=== PATIENT | male | born 1980 | race Caucasian/White ===

== ENCOUNTER 2017-07-22 16:23 | Inpatient (IN) | payer OTHER ==
[~2017-07-22] VITALS: Ht 180.3 cm; Wt 85.3 kg
[2017-07-22 16:35] VITALS: BP 146/90
[2017-07-22 17:07] LABS: BASO % 0.3 % (0.0-1.0); EOS # 0.1 10*3/uL (0.0-0.4); EOS % 1.3 % (1.0-4.0); HEMATOCRIT 42.3 % (42.0-52.0); HEMOGLOBIN 14.1 g/dl (14.0-18.0); LYMPH # 1.7 10*3/uL (1.3-4.4); LYMPH % 27.6 % (27.0-41.0); MEAN CELL VOLUME 86.5 fl (80.0-94.0); MEAN CORPUSCULAR HGB 28.8 pg (27.0-31.0); MEAN CORPUSCULAR HGB CONC 33.3 g/dl (33.0-37.0); MEAN PLATELET VOLUME 9.3 fl (9.6-12.3); MONO # 0.5 10*3/uL (0.1-1.0); MONO % 8.3 % (3.0-9.0); NEUT # 3.9 10*3/uL (2.3-7.9); NEUT % 62.3 % (47.0-73.0); PLATELET COUNT AUTOMATED 227 10*3/uL (130-400); RED BLOOD COUNT 4.89 10*6/uL (4.50-5.90); RED CELL DISTRI WIDTH 14.6 % (0-14.5); WHITE BLOOD COUNT 6.2 10*3/uL (4.8-10.8)
[2017-07-22 17:09] LABS: BILIRUBIN NEGATIVE (NEGATIVE); BLOOD NEGATIVE (NEGATIVE); CLARITY SL CLOUDY (CLEAR); COLOR YELLOW (YELLOW); GLUCOSE NEGATIVE (NEGATIVE); KETONE NEGATIVE (NEGATIVE); LEUKO ESTERASE NEGATIVE (NEGATIVE); NITRITE NEGATIVE (NEGATIVE); PH 5.5 (5.0-9.0); SPECIFIC GRAVITY 1.025 (1.005-1.030); UROBILINOGEN 0.2 E.U./dl (0.2-1.0)
[2017-07-22 17:18] LABS: URINE AMPHETAMINES < 1000 (1000ng/ml); URINE BARBITURATES < 200 (200ng/ml); URINE BENZODIAZEPINES < 200 (200ng/ml); URINE CANNABINOIDS (THC) < 50 (50ng/ml); URINE COCAINE < 300 (300ng/ml); URINE METHADONE > 300 (300ng/ml); URINE OPIATES > 300 (300ng/ml)
[2017-07-22 17:20] LABS: BACTERIA TRACE; EPITHELIAL CELLS 0-2
[2017-07-22 17:21] LABS: ALKALINE PHOSPHATASE 173 U/L (45-117); BUN 18 mg/dl (7-24); CHLORIDE 104 mmol/L (98-107); CREATININE 0.79 mg/dL (0.70-1.30); POTASSIUM 4.1 mmol/L (3.5-5.1); SGOT/AST 75 IU/L (3-35); SGPT/ALT 250 U/L (12-78); SODIUM 139 mmol/L (136-145); TOTAL PROTEIN 7.8 gm/dL (6.4-8.2)
[2017-07-22 17:21] LABS: URINE PHENCYCLIDINE < 25 (25ng/ml)
[2017-07-22 17:22] LABS: ETHYL ALCOHOL < 3.0 mg/dl (<3)
--- NOTE | 2017-07-22 17:37 | NUR ---
PT LAYING IN BED FAMILY IN ROOM NO DISTRESS NOTED
[2017-07-22 17:47] VITALS: BP 136/80
[2017-07-22 18:16] VITALS: BP 133/71
[2017-07-22] MEDS ORDERED: SEROQUEL XR300 MG PO (18:18)
[2017-07-22] MEDS ORDERED: NAPROXEN500 MG PO (18:21)
--- NOTE | 2017-07-22 18:28 | NUR ---
A 36, admitted to , under the services of VERONICA Sorenson DO with a diagnosis of OPIATE ADDICTION. Chief complaint is SUBSTANCE ABUSE WITHDRAWL. Patient arrived via bed from ER. Monitor applied. Initial assessment completed. Vital signs taken and recorded. VERONICA SORENSON DO notified of admission to the unit. Orders received. See assessment for past medical history, medications and allergies. Patient and/or family oriented to unit. [facility] visitation policy reviewed. Clothing/patient valuable form completed. WILLOW YAP
[2017-07-22 18:32] LABS: LIPASE 156 U/L (73-393)
--- NOTE | 2017-07-22 20:18 | NUR ---
PATIENT MEDICATED WITH ROBAXIN AND ZOFRAN PER PRN ORDER FOR C/O MUSCLE ACHINESS AND NAUSEA. SEE EMAR. REINFORCED USE OF CALL LIGHT.
[2017-07-22 21:07] VITALS: BP 144/79
--- NOTE | 2017-07-22 21:20 | NUR ---
PATIENT RESTING QUIETLY. NO FURTHER C/O.
--- NOTE | 2017-07-22 22:00 | NUR ---
PATIENT MEDICATED WITH VISTARIL AND TRAZODONE PER PRN ORDER FOR C/O INABILITY TO SLEEP AND ANXIETY. SEE EMAR. REINFORCED USE OF CALL LIGHT.
[2017-07-23] VITALS: BP 128/80
--- NOTE | 2017-07-23 | NUR ---
Patient resting. Responding to scheduled medications with fewer complaints of pain and anxiety.
--- NOTE | 2017-07-23 02:45 | NUR ---
PATIENT MEDICATED WITH ROBAXIN, REQUIP AND IBUPROFEN PER PRN ORDER AND PATIENT REQUEST FOR C/O RESTLESS LEGS, ACHINESS AND GENERALIZED DISCOMFORT. SEE EMAR . REINFORCED USE OF CALL LIGHT.
[2017-07-23 04:00] VITALS: BP 136/85
[2017-07-23 08:00] VITALS: BP 126/78
--- NOTE | 2017-07-23 08:17 | NUR ---
PRN MOTRIN GIVEN FOR 4/10 LOWER BACK PAIN.
--- NOTE | 2017-07-23 08:17 | NUR ---
PRN ROBAXIN GIVEN FOR GENERALIZED MUSCLE ACHES AND PAINS.
--- NOTE | 2017-07-23 08:17 | NUR ---
PRN VISTARIL GIVEN FOR PT REPORT ANXIETY.
--- NOTE | 2017-07-23 08:17 | NUR ---
PRN NICODERM PATCH APPLIED PER PT REQUEST.
--- NOTE | 2017-07-23 08:18 | NUR ---
PRN BENTYL GIVEN FOR MILD STOMACH DISCOMFORT.
--- NOTE | 2017-07-23 09:17 | NUR ---
PRN VISTARIL EFECTIVE, PT STATES HIS ANXIETY HAS IMPROVED.
--- NOTE | 2017-07-23 09:17 | NUR ---
PRN NICODERM APPEARS EFFECTIVE, PT STATES HE IS NOT CRAVING A CIGARETTE.
--- NOTE | 2017-07-23 09:17 | NUR ---
PRN MOTRIN EFFECTIVE, PT DENIES PAIN.
--- NOTE | 2017-07-23 09:17 | NUR ---
PRN ROBAXIN EFFECTIVE , PT REPORTS GENERALIZED ACHES HAVE IMPROVED.
--- NOTE | 2017-07-23 09:18 | NUR ---
PRN BENTYL EFFECTIVE, PT DENIES STOMACH DISCOMFORT.
--- NOTE | 2017-07-23 11:25 | NUR ---
PRN ZOFRAN GIVEN FOR NAUSEA.
[2017-07-23 12:00] VITALS: BP 132/70
--- NOTE | 2017-07-23 12:25 | NUR ---
PRN ZOFRAN EFFECTIVE, PT DENIES NAUSEA.
--- NOTE | 2017-07-23 15:52 | NUR ---
D/C PLAN: PATIENT IS SET UP TO GO TO INPATIENT TREATMENT UPON DISCHARGE. TRANSPORTATION IS SET UP THROUGH [facility]. PATIENT AGREES AND UNDERSTANDS AFTERCARE PLAN. KAITLYNN PADILLA B.A. LICENSED OPTICIAN
[2017-07-23 16:00] VITALS: BP 126/72
--- NOTE | 2017-07-23 16:08 | NUR ---
prn motrin given for 3/10 lower back pain.
--- NOTE | 2017-07-23 17:03 | NUR ---
PRN PAIN MED EFFECTIVE, PT DENIES PAIN.
--- NOTE | 2017-07-23 19:45 | NUR ---
PATIENT NMEDICATED WITH ZOFRAN , BENTYL, AND VISTARIL PER PRN ORDER AND PATIENT REQUEST FOR C/O NAUSEA, ABDOMINAL CRAMPING AND ANXIETY. SEE EMAR. REINFORCED USE OF CALL LIGHT.
[2017-07-23 20:00] VITALS: BP 124/76
--- NOTE | 2017-07-23 20:45 | NUR ---
Patient resting. Responding to scheduled medications with fewer complaints of pain and anxiety.
--- NOTE | 2017-07-23 21:17 | NUR ---
PATIENT MEDICATED WITH ROBAXIN AND REQUIP PER PRN ORDER FOR C/O RESTLESS LEGS AND MUSCLE ACHINESS. SEE EMAR. REINFORCED USE OF CALL LIGHT.
--- NOTE | 2017-07-23 22:35 | NUR ---
PATIENT RESTING QUIETLY. NO FURTHER C/O VOICED.
[2017-07-24] VITALS: BP 113/67
--- NOTE | 2017-07-24 02:25 | NUR ---
PATIENT MEDICATED WITH BENTYL AND ZOFRAN PER PRN ORDER FOR C/O ABDOMINAL CRAMPING AND NAUSEA. SEE EMAR. REINFORCED USE OF CALL LIGHT.
[2017-07-24 08:00] VITALS: BP 116/61
--- NOTE | 2017-07-24 10:00 | NUR ---
PT GIVEN PRN BENTYL AND ZOFRAN WITH HIS SUBUTEX DOSE PER HIS REQUEST D/T NAUSEA AND CRAMPING PREVIOUSLY EXPERIENCED WITH MED.
[2017-07-24 12:00] VITALS: BP 106/64; BP 123/72
--- NOTE | 2017-07-24 12:30 | NUR ---
PT GIVEN PRN NICOTINE PATCH PER HIS REQUEST FOR URGE TO SMOKE.
[2017-07-24 16:00] VITALS: BP 115/87
--- NOTE | 2017-07-24 19:30 | NUR ---
PATIENT RESTING IN BED WATCHING TV. C/O ANXIOUSNESS. WILL MONITOR. BED IN LOWEST POSITION, CALL LIGHT IN REACH
--- NOTE | 2017-07-24 21:29 | NUR ---
PATIENT MEDICATED WITH PRN VISTARIL FOR C/O ANXIOUSNESS
--- NOTE | 2017-07-24 22:42 | NUR ---
MEDICATED WITH ZOFRAN FOR C/O NAUSEA WHEN TAKING SUBUTEX. VISTARIL EFFECTIVE PER PATIENT
[2017-07-25] VITALS: BP 113/65; BP 152/67
--- NOTE | 2017-07-25 03:41 | NUR ---
24 HR chart check completed.
--- NOTE | 2017-07-25 05:41 | NUR ---
PATIENT RESTING IN BED WITH EYES CLOSED. RESPS EASY AND REGULAR. BED IN LOWEST POSITION, CALL LIGHT IN REACH
[2017-07-25 08:00] VITALS: BP 120/76
--- NOTE | 2017-07-25 09:02 | NUR ---
PT COMPLAINS OF MUSCLE ACHES, PRN GIVEN. SEE MAR. WILL MONITOR FOR EFFECTIVENESS
--- NOTE | 2017-07-25 10:00 | NUR ---
PT STATES PRN EFFECTIVE FOR MUSCLE ACHE/WITHDRAWL SYMPTOMS. NO NEEDS STATED AT THIS TIME
[2017-07-25] MEDS ORDERED: METHOCARBAMOL750 M1 PO (10:37)
[2017-07-25] MEDS ORDERED: SEROQUEL XR300 MG PO (10:37)
--- NOTE | 2017-07-25 10:53 | NUR ---
Shift chart check completed.
--- NOTE | 2017-07-25 13:07 | NUR ---
Patient discharged in stable condition.pt enzo d/c medicaions and [facility], he is scheduled to be picked up from the hospital at 2pm. pt understands discharge plan and instructions and has no questions at this time. . Patient verbalizes understanding of discharge plan.
--- NOTE | 2017-07-25 14:49 | NUR ---
PATIENTS RIDE IS HERE, HE WALKED DOWN TO THE LOBBY TO WAIT ON THEM. DISCHARGE COMPLETE
== END 2017-07-25 14:50 | DRG 897 ==
LOC: ED 16:23 → 5E 17:45 → EDHOLD 17:45 → 5E 17:57
PROVIDERS: Internal Medicine; Nurse Practitioner Family; ADMIT Emergency Medicine
DX: F11.23 Opioid dependence with withdrawal (principal); F15.10 Other stimulant abuse, uncomplicated; R74.0 Nonspecific elevation of levels of transaminase and lactic acid dehydrogenase [LDH]; F17.210 Nicotine dependence, cigarettes, uncomplicated; M19.90 Unspecified osteoarthritis, unspecified site; M54.5 Low back pain; G89.29 Other chronic pain; Z79.899 Other long term (current) drug therapy; Z71.6 Tobacco abuse counseling; Z72.89 Other problems related to lifestyle